=== PATIENT | female | born 1980 | race American Indian/Alaskan Native ===

== ENCOUNTER 2020-03-26 14:01 | Emergency (ER) | payer MEDICAID ==
[2020-03-26 15:00] VITALS: BP 137/94
--- NOTE | 2020-03-26 15:16 | Emergency Department Report ---
ED Eye Problem HPI - General Chief complaint: Eye Problems Stated complaint: POSS EYE INFECTION Time Seen by Provider: 03/26/20 15:11 Source: patient Mode of arrival: Ambulatory Limitations: No Limitations - History of Present Illness Initial comments: Patient is a 39-year-old female presents emergency room with complaints of right eye irritation and pain that began 2 weeks ago. She states that she used some guqv-bap-yuzaktm pinkeye relief drops without much relief. She states that she saw her primary care doctor and was put on allergy eyedrops and Zyrtec. She states that it has been getting worse. She has associated drainage, crusting, eyelash matting, small amount of swelling. She did not get anything in the eye. She denies any contact lens use. She has a past medical history of a thyroid issue. No allergies to medications. Last menstrual cycle 2 weeks ago. - Related Data Previous Rx's Medication Instructions Recorded Last Taken Type Polymyxin B Sulf/Trimethoprim 1 drop OP Q3HR 7 Days #1 bottle 03/26/20 Unknown Rx [Polytrim Eye Drops] Allergies Allergy/AdvReac Type Severity Reaction Status Date / Time No Known Allergies Allergy Unverified 03/26/20 14:53 ED Review of Systems ROS: Stated complaint: POSS EYE INFECTION Other details as noted in HPI Comment: All other systems reviewed and negative ED Past Medical Hx - Past Medical History Previous Medical History?: Yes Additional medical history: hyperthyroidism - Surgical History Past Surgical History?: No - Social History Smoking Status: Current Some Day Smoker Substance Use Type: Alcohol - Medications Home Medications: Home Medications Medication Instructions Recorded Confirmed Last Taken Type Polymyxin B Sulf/Trimethoprim 1 drop OP Q3HR 7 Days #1 bottle 03/26/20 Unknown Rx [Polytrim Eye Drops] ED Physical Exam - General Limitations: No Limitations General appearance: alert, in no apparent distress - Head Head exam: Present: atraumatic, normocephalic - Eye Eye exam: Present: PERRL, EOMI, conjunctival injection (there is right conjunctival injection with small amount of drainage, the right upper eyelid has mild edema and erythema, the left conjunctiva appears mildly injected, no signs of ulceration or foreign body on visualization, no pain with EOMI, no signs of entrapement) - ENT ENT exam: Present: mucous membranes moist - Respiratory Respiratory exam: Absent: respiratory distress, accessory muscle use - Neurological Exam Neurological exam: Present: alert, oriented X3 - Psychiatric Psychiatric exam: Present: normal affect, normal mood - Skin Skin exam: Present: warm, dry ED Course Vital Signs 03/26/20 14:56 Temperature 98.4 F Pulse Rate 91 H Respiratory 18 Rate Blood Pressure 137/94 O2 Sat by Pulse 100 Oximetry ED Medical Decision Making - Medical Decision Making Patient is a 39-year-old female presents emergency room with complaints of right eye irritation and pain that began 2 weeks ago. She states that she used some vzpu-uxf-svawhht pinkeye relief drops without much relief. She states that she saw her primary care doctor and was put on allergy eyedrops and Zyrtec. She states that it has been getting worse. She has associated drainage, crusting, eyelash matting, small amount of swelling. She did not get anything in the eye. She denies any contact lens use. She has a past medical history of a thyroid issue. No allergies to medications. Last menstrual cycle 2 weeks ago. vitals are stable. on exam: there is right conjunctival injection with small amount of drainage, the right upper eyelid has mild edema and erythema, the left conjunctiva appears mildly injected, no signs of ulceration or foreign body on visualization, no pain with EOMI, no signs of entrapement. Examination appears consistent with conjunctivitis. she has no clinical signs of preseptal or orbital cellulitis, chalazion, hordeolum, dacryocystitis, blepharitis, iritis. pt given prescription for polytrim eye drops. advised pt please use medication as prescribed. wash your hands frequently. change your bed sheets and pillow cases. follow up with a primary care doctor. follow up with lab pack chemist. return to the emergency room for any new or worsening symptoms. Critical care attestation.: If time is entered above; I have spent that time in minutes in the direct care of this critically ill patient, excluding procedure time. ED Disposition Clinical Impression: Conjunctivitis Qualifiers: Conjunctivitis type: acute Acute conjunctivitis type: unspecified Laterality: bilateral Qualified Code(s): H10.33 - Unspecified acute conjunctivitis, bilateral Disposition: - TO HOME OR SELFCARE Is pt being admited?: No Does the pt Need Aspirin: No Condition: Stable Instructions: Conjunctivitis (ED) Additional Instructions: please use medication as prescribed. wash your hands frequently. change your bed sheets and pillow cases. follow up with a primary care doctor. follow up with lab pack chemist. return to the emergency room for any new or worsening symptoms. Prescriptions: Polymyxin B Sulf/Trimethoprim [Polytrim Eye Drops] 1 drop OP Q3HR 7 Days #1 bottle Referrals: GARY CAVAZOS MD [Referring] - 2-3 Days ANTONINO REYES MD [Staff Physician] - 2-3 Days [facility] [Provider Group] - 2-3 Days Time of Disposition: 15:12 Print Language: PUERTO RICAN
== END 2020-03-26 15:36 | disposition home or self-care (01) ==
LOC: ED 14:01
DX: H10.9 Unspecified conjunctivitis (principal); F17.200 Nicotine dependence, unspecified, uncomplicated; Z79.899 Other long term (current) drug therapy
CPT/HCPCS: 99282

== ENCOUNTER 2020-12-30 19:53 | Emergency (ER) | payer MEDICAID ==
[2020-12-30 21:01] VITALS: BP 137/93
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
[2020-12-30 22:12] LABS: Hematocrit 39.1 % (30.3-42.9); Hemoglobin 13.5 gm/dl (10.1-14.3); Mean Corpuscular HGB Conc 34 % (30-34); Mean Corpuscular Volume 99 fl (79-97); Platelet Count 224 K/mm3 (140-440); Red Blood Count 3.96 M/mm3 (3.65-5.03); Red Cell Distribution Width 14.2 % (13.2-15.2)
[2020-12-30 22:25] LABS: BUN/Creatinine Ratio 8; Blood Urea Nitrogen 6 mg/dL (7-17); Calcium 9.8 mg/dL (8.4-10.2); Hemolysis Index 9
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
--- NOTE | 2020-12-31 10:12 | Electrocardiograph Report ---
[facility] Test Date: 2020-12-30 Test Time: 21:07:17 Pat Name: ELAYNE ASHFORD Department: Room: Gender: F Life Skills Worker: RAVI : 1980 Requested By: ANA MCGOVERN Order Number: [id number] Reading MD: Bhavesh Pa Measurements Intervals [place] Rate: 62 P: 74 WI: 165 QRS: 66 QRSD: 113 T: 59 QT: 412 QTc: 420 Interpretive Statements Sinus rhythm No previous ECG available for comparison Electronically Signed On 12-31-2020 10:11:52 EDT by Bhavesh Pa
== END 2020-12-30 22:00 | disposition home or self-care (01) ==
LOC: ED 19:53
DX: T59.811A Toxic effect of smoke, accidental (unintentional), initial encounter (principal); E05.90 Thyrotoxicosis, unspecified without thyrotoxic crisis or storm; F17.200 Nicotine dependence, unspecified, uncomplicated; Y92.89 Other specified places as the place of occurrence of the external cause
CPT/HCPCS: 71046; 80048; 85027; 93005; 99283